=== PATIENT | female | born 1940 | race Caucasian/White ===

== ENCOUNTER 2020-09-15 13:55 | Inpatient (IN) | payer MEDICARE, BC ==
[~2020-09-15] VITALS: Ht 154.9 cm; Wt 99.1 kg
[~2020-09-15 13:55] MED LIST: 00186-0370-20 IH; ALDACTONE 25MG25 M1 PO; CALCIUM + D 6001 TA1 PO; CELEXA10 MG PO; COUMADIN 22.5 MG/TAB PO; COUMADIN 5MG5 MG/TAB PO; FOLIC ACID 11 MG/TA1 PO; FOSAMAX PLUS D1 TAB PO; HYZAAR 25 MG-101 TAB PO; LANOXIN 0.120.125 MG PO; LASIX 40MG TABL40 MG PO; LEXAPRO 10MG10 MG PO; OSCAL 500 TAB500 MG PO; OSCAL W/VIT D250 MG PO; PREDNISONE 5MG5 MG PO; PRILOSEC 20MG20 MG PO; PROAIR HFA0.09 MG/AC IH; TENORMIN 2525 MG/TAB PO
[2020-09-15] MEDS ORDERED: ELIQUIS 5MG PO (15:40)
[2020-09-15] MEDS ORDERED: LIPITOR 80MG80 MG PO (15:41)
[2020-09-15] MEDS ORDERED: CEPHALEXIN500 M1 PO (15:42)
[2020-09-15] MEDS ORDERED: CARDIZEM 30MG T30 MG PO (15:45)
[2020-09-15] MEDS ORDERED: HYDROCORTISONE30 G3 TP (15:47)
[2020-09-15] MEDS ORDERED: TOPROL XL 50MG50 MG PO (15:48)
[2020-09-15] MEDS ORDERED: PROTONIX20 MG PO (15:50)
[2020-09-15] MEDS ORDERED: LASIX 20MG TABL20 MG PO (16:08)
[2020-09-15] MEDS ORDERED: TYLENOL 500MG500 MG PO (16:10)
[2020-09-15] MEDS ORDERED: 00186-0370-20 IH (16:14)
[2020-09-15] MEDS ORDERED: ZYRTEC 10MG10 MG PO (16:15)
[2020-09-15] MEDS ORDERED: VITAMIN D31000 I1 PO (16:16)
[2020-09-15] MEDS ORDERED: SINGULAIR 110 MG/TAB PO (16:17)
[2020-09-15] MEDS ORDERED: EFFEXOR XR75 MG/CAP PO (16:19)
--- NOTE | 2020-09-15 21:00 | NUR ---
PT ADMITTED TO ROOM 338 PER TRANSPORT SERVICE FROM [facility]. PT TRANSFERRED MAX 3 TO BED PER STRETCHER. LT ARM FLACCID. LEFT LEG MOVES SLIGHTLY. NOTED VERY POOR CIRCULATION TO LLE- COLD TO TOUCH. MARBLED IN COLOR. TOES PURPLE. PT REPORTS THAT HAS BEEN LIKE THAT FOR A WEEK. UNABLE TO FEEL PEDAL PULSES. OBTAINED DOPPLER- STILL UNABLE TO HEAR ANY. NOTIFIED MONICA MOORE OF FINDINGS. SHE WILL COME TO ASSESS. PEDAL PULSES FOUND BY MONICA. MARKED WITH PEN. WILL CONTINUE TO MONITOR. PT DRINKING H20 WELL W/O CHOKING. ORIENTED TO ROOM AND VISITORS POLICY. HAD QUESTIONS- ANSWERED. CALL LIGHT IN REACH. BED ALARM SET. LT ARM UP ON PILLOW. SCD'S APPLIED TO BILAT LEGS.
[2020-09-15 21:39] VITALS: BP 116/76; PULSE 93; TEMP 97.5
--- NOTE | 2020-09-15 22:00 | NUR ---
PT HAS YEAST BILAT UNDER BREAST, PANNUS AND GROIN. WILL NOTIFY FOR TX PLAN IN AM.
[2020-09-15] MEDS ORDERED: PROLIA60 MG/ML SQ (22:43)
--- NOTE | 2020-09-16 00:04 | NUR ---
PT SLEEPING WITH CPAP ON. NO DISTRESS.
--- NOTE | 2020-09-16 03:18 | NUR ---
PT ARRIVED TO HOSPITAL AT 2100. THEREFORE SVN WAS NOT GIVEN. 2 HOURS PAST SCHEDULED TIME. PT IS ON ROOM AIR AND NO RESPIRATORY DISTRESS NOTED AT THIS TIME. PT IS ON HER CPAP RESTING COMFORTABLY.
[2020-09-16 05:33] VITALS: BP 127/64; PULSE 79; TEMP 98.6
--- NOTE | 2020-09-16 08:00 | NUR ---
Patient in bed resting. Assisted patient to set up for breakfast, eats independently. LUE flacid. Toes to BLE purple, pedal pulses present. Denies pain at this time. Denies further needs at this time.
--- NOTE | 2020-09-16 10:30 | NUR ---
Contacted Zina NEWTON for desenex orders, applies to groin and underneath breasts.
--- NOTE | 2020-09-16 11:20 | NUR ---
Patient to recliner with sit to stand.
--- NOTE | 2020-09-16 14:45 | NUR ---
SW met with the patient to complete intake, as the patient is new to [facility]. The patient lives alone in [place]. Her son, Ashwin (ph#[phone]), lives in [place]. She reports independence with ADLs and has a cane and a CPAP from a [facility] in [place]. She could not recall their name. The patient's PCP is Dr. Tenzin Simeon in [place] and she receives her medications from [facility]. The patient does not have a DPOA-HC in EMR, but she states that she does have one completed and that it designates her son, Obi. She states that the DPOA-HC is at home. She reports that her is and she has four children: Obi, Ashwin, Malathi, and Maxine (ph#[phone]). The patient states that she feels a little discouraged with therapy today. SW provided support. AILYN then contacted the patient's son, Ashwin, to inquire about the DPOA-HC. Ashwin reports that the patient does not have one completed and that it designates his brother, Obi. He reports that him or one of his siblings can bring up a copy. SW to continue to follow.
[2020-09-16 17:20] VITALS: BP 122/63; PULSE 84; TEMP 97.7
--- NOTE | 2020-09-16 19:06 | NUR ---
Patient doing well throughout the day, has been up to recliner through the day. Denies pain. Heels floated on pillows, SCDS to BLE. Denies furhter needs at this time. Reported off to website project manager.
--- NOTE | 2020-09-16 19:12 | NUR ---
RECEIVED CHANGE OF SHIFT REPORT FROM DAY SHIFT NURSE. PATIENT WITH NO REPORTED NEEDS OR CONCERNS AT TIME OF REPORT.
[2020-09-17 05:40] VITALS: BP 117/51; PULSE 61; TEMP 98.3
--- NOTE | 2020-09-17 07:19 | NUR ---
CHANGE OF SHIFT REPORT GIVEN TO DAY SHIFT NURSE, MAVIS STEWART.
--- NOTE | 2020-09-17 16:34 | NUR ---
Records requested from [facility]
[2020-09-17 17:54] VITALS: BP 116/53; PULSE 99; TEMP 97.7
--- NOTE | 2020-09-17 18:41 | NUR ---
RECEIVED CHANGE OF SHIFT REPORT FROM DAY SHIFT NURSE.
[2020-09-17 20:50] VITALS: BP 132/57
[2020-09-18 05:01] VITALS: BP 122/66; PULSE 105; TEMP 98.4
--- NOTE | 2020-09-18 06:51 | NUR ---
CHANGE OF SHIFT REPORT GIVEN TO DAY SHIFT NURSE, RILEY STEWART.
--- NOTE | 2020-09-18 08:30 | NUR ---
assisted onto bedpan per her request, had large semiformed/loose brown bowel movement and voided large amount, provided hygiene and am hygiene at this time, changed out of hospital gown and into personal gown, brushed her teeth independently, denies needs, cardiopulmonary in to provide breathing treatment
--- NOTE | 2020-09-18 09:05 | NUR ---
resting in bed watching TV, full assessment completed at this time, see interventions for further info, right upper arm with brusing and is marked, brusing appears to be receeding from marked line, cocyx slightly reddened, toes are purplish red, was able to palpate weak pedal pulses, she is pleasant and assists with turning and with am care
--- NOTE | 2020-09-18 11:25 | NUR ---
son here to visit, repositioned to left side
--- NOTE | 2020-09-18 12:01 | NUR ---
sitting up in bed eating lunch, denies needs
--- NOTE | 2020-09-18 12:15 | NUR ---
report given to PAT Green
[2020-09-18 16:43] VITALS: BP 137/57; PULSE 80; TEMP 97.7
--- NOTE | 2020-09-18 17:53 | NUR ---
Patient resting in bed at this time. Patient remians alert and oriented. Patient has been repositioned frequently to prevent skin breakdown and has denied pain or further needs, call light within reach.
--- NOTE | 2020-09-18 19:02 | NUR ---
RECEIVED CHANGE OF SHIFT REPORT FROM DAY SHIFT NURSE.
--- NOTE | 2020-09-18 19:30 | NUR ---
OBSERVED SLIGHT L HAND DRESS OPERATOR ON COMMAND COMPARED TO R HAND DRESS OPERATOR.
--- NOTE | 2020-09-18 20:00 | NUR ---
DENIES CHEST PAIN/SOA AT THIS TIME. PATIENT STATES SHE HAS BEEN ABLE TO LIFT HER LUE SPONTANEOUSLY AT ABOUT A 45 DEGREE ANGLE FOR SHORT PERIOD OF TIME, WITH WEAKNESS. WEAKNESS CONTINUES TO LLE. SWALLOWS WHOLE PILLS AND THIN LIQUIDS WITH NO PROBLEMS. BED ALARM ON WHEN IN BED.
[2020-09-18 21:08] VITALS: BP 117/73
--- NOTE | 2020-09-19 02:37 | NUR ---
PATIENT REQUEST TO HAVE CPAP OFF AND TURNED TO LEFT SIDE. BED ALARM ON AFTER REPOSITIONED.
[2020-09-19 05:42] VITALS: BP 119/48; PULSE 80; TEMP 98.4
[2020-09-19 06:38] LABS: INR 1.5 (0.8-3.0); PROTHROMBIN TIME 16.4 SECONDS (9.7-12.8)
[2020-09-19 06:39] LABS: HEMATOCRIT 41.7 % (37.0-47.0); HEMOGLOBIN 13.6 g/dl (12.5-16.0); MEAN CELL VOLUME 95 fl (80.0-100.0); MEAN CORPUSCULAR HEMOGLOBIN 31 pg (27.0-31.0); MEAN CORPUSCULAR HGB CONC 33 g/dl (33.0-37.0); MEAN PLATELET VOLUME 12.1 fl (7.4-10.4); PLATELET COUNT 238 K/mm3 (130-400); RED BLOOD COUNT 4.38 M/mm3 (4.10-5.30); REDCELL DISTRIBUTION WIDTH-CV 14.9 % (11.5-14.5)
[2020-09-19 06:47] LABS: ALBUMIN 3.3 gm/dL (3.5-5.0); BILIRUBIN,TOTAL 0.6 mg/dL (0.0-1.0); CALCIUM 8.6 mg/dL (8.4-10.2); CREATININE, serum 0.94 (0.52-1.25); POTASSIUM 4.9 mmol/L (3.4-5.0)
--- NOTE | 2020-09-19 06:57 | NUR ---
CHANGE OF SHIFT REPORT GIVEN TO DAY SHIFT NURSE, ELIZABETH STEWART.
[2020-09-19 07:40] VITALS: BP 118/53; PULSE 100
[2020-09-19 07:51] LABS: BAND 2 % (0-10); EOSINOPHIL 2 % (0-4); LYMPHOCYTE 14 % (20.0-51.0); METAMYELOCYTE 1 % (0-0); NEUTROPHILS 77 % (42.0-75.2); PLATELET ESTIMATE NORMAL (NORMAL)
--- NOTE | 2020-09-19 08:00 | NUR ---
Patient sitting up in recliner, alert and oriented x 3. Assessment complete. Dneies pain at this time. Toes to bilateral lower extremities remain purple, pedal pulse +1. Patient denies further needs at this time.
--- NOTE | 2020-09-19 15:14 | NUR ---
Admission QIM scores were reviewed by the team. Code of 4 chosen for oral hygiene was determined by team discussion to be the most usual performance before interventions for this patient during the assessment period. Code of 1 chosen for toileting transfers was determined by team discussion to be the most usual performance for this patient during the assessment period. Code of 2 chosen for rolling left to right was determined by team discussion to be the most usual performance for this patient during the assessment period. Code of 2 chosen for lying to sitting on side of bed was determined by team discussion to be the most usual performance for this patient during the assessment period.--Taniya Don,
--- NOTE | 2020-09-19 16:09 | NUR ---
Technical Programs Manager was contacted by patient's son, Ashwin who inquired about a family meeting and patient's progress. SW advised that the team will meet on Saturday and SW would follow up with an update. AILYN also advised that while patient is here a family meeting would be scheduled. SW attempted twice to follow up with patient but was unsucessful. SW will attempt to follow up at a later time.
--- NOTE | 2020-09-19 16:16 | NUR ---
Notified by FARMWORKER CRANBERRY that patient hit arm on door jamb when getting out of restroom using sit to stand. Area cleaned with iodine, steri strips and telfa with tegaderm applied to right forarm. No further needs at this time.
[2020-09-19 16:31] VITALS: BP 105/55; PULSE 88; TEMP 97.9
--- NOTE | 2020-09-19 19:00 | NUR ---
RECEIVED CHANGE OF SHIFT REPORT FROM DAY SHIFT NURSE.
--- NOTE | 2020-09-19 19:09 | NUR ---
Patient doing well throughout the day, has been up to recliner throughout the day. Denies pain throughout the day. Denies further needs at this time. Reported off to night manager.
[2020-09-20 05:18] VITALS: BP 121/66; PULSE 65; TEMP 97.6
--- NOTE | 2020-09-20 07:20 | NUR ---
CHANGE OF SHIFT REPORT GIVEN TO DAY SHIFT NURSE, JAYLEN STEWART.
--- NOTE | 2020-09-20 07:50 | NUR ---
AM SHIFT ASSESSMENT COMPLETE. MORNING MEDICATIONS ADMINISTERED. PATIENT WAITING FOR THERAPY THIS MORNING. CALL LIGHT IN REACH. NO OTHER NEEDS AT THIS TIME.
--- NOTE | 2020-09-20 11:06 | NUR ---
Initial visit; Patient thanked Container Washer Machine for looking in on her and offering prayer and God's blessings.
--- NOTE | 2020-09-20 12:28 | NUR ---
PATIENT REPORTING BILATERAL KNEE PAIN. PATIENT STATES THAT SHE USES BENGAY AT HOME. PATIENT GIVEN PRN TYLENOL FOR PAIN AT THIS TIME.
--- NOTE | 2020-09-20 17:33 | NUR ---
PATIENT SITTING UP IN BEDSIDE CHAIR. PATIENT FINISHED WITH DINNER. PATIENT STATES THAT SHE WOULD LIKE TO SIT UP FOR A WHILE. TRAY MOVED TO THE SIDE FOR PATIENT; WATER, TISSUES AND CALL LIGHT IN REACH. CHAIR ALARM IN PLACE. NO ADDITIONAL NEEDS AT THIS TIME.
[2020-09-20 18:36] VITALS: BP 106/49; PULSE 94; TEMP 97.7
--- NOTE | 2020-09-21 04:51 | NUR ---
NO NEW ISSUES NOTED OR REPORTED BY PATIENT THROUGHOUT THE NIGHT.
[2020-09-21 05:01] VITALS: BP 127/60; PULSE 88; TEMP 97.9
--- NOTE | 2020-09-21 16:03 | NUR ---
Cooker Loader met with patient to review and provide copy of team conference notes. Patient states things are going well, however she does feel that it is taking a while to get a response when she hits the call light. SW advised patient that the team will re-evaluate her next week. AILYN then contacted patient's son, Ashwin to give an update. AILYN advised Ashwin that a family meeting would be scheduled at a later time. AILYN will continue to follow.
[2020-09-21 16:52] VITALS: BP 136/69; PULSE 96; TEMP 97.3
--- NOTE | 2020-09-21 18:00 | NUR ---
Patient has been doing well today. She has some aching to her knees and had a headache this am. Tylenol given, ointment applied to knees as ordered. No complaints of nausea. Changed the dressing to the skin tear to her right arm. Steri-strips intact, scant pink drinage from tear. Placed a 4x4 foam dressing to site. No other changes at this time. Call light within reach. Bed alarm on.
--- NOTE | 2020-09-21 19:00 | NUR ---
RECEIVED CHANGE OF SHIFT REPORT FROM DAY SHIFT NURSE.
--- NOTE | 2020-09-21 20:00 | NUR ---
DENIES CHEST PAIN/SOA AT THIS TIME. CONTINUES WITH WEAKNESS TO LUE AND LLE WITH DECREASED SENSATION TO LUE/LLE. BED ALARM ON WHEN IN BED. PURPLISH DISCOLORATION TO TOES OF LEFT FOOT CONTINUES.
[2020-09-22 05:07] VITALS: BP 140/70; PULSE 73; TEMP 97.9
--- NOTE | 2020-09-22 07:33 | NUR ---
CHANGE OF SHIFT REPORT GIVEN TO DAY SHIFT NURSEJENNY RN.
[2020-09-22 15:54] VITALS: BP 123/60; PULSE 99; TEMP 98
--- NOTE | 2020-09-22 17:45 | NUR ---
Patient resting in bedside recliner eating dinner at this time. Patient remains alert and oriented, answers questions appropriately. Patient has c/o some bilateral knee pain today, applied topical volteran gel for patient comfort. Patient denies needs at this time, call light within reach.
--- NOTE | 2020-09-22 21:00 | NUR ---
PT TRANSFERRED TO BED FROM CHAIR PER SIT TO STAND LIFT. HAD SMALL SOFT FORMED BM. NEEDED HYGIENE CARE ASSIST. LT ARM FLACCID. ELEVATED ON PILLOW. LLE COOLER THAN RT BUT PINK. LLE PULSES PER DOPPLER AREA MARKED WITH PEN. RLE PULSES PALPABLE. GOOD SENSATION NOTED. PUREWICK STARTED FOR HS FOR INCONTINENT URINE. SEE SKIN ASSESSEMENT FOR COCCYX. CALL LIGHT IN REACH. BED ALARM SET.
--- NOTE | 2020-09-23 05:26 | NUR ---
PT WORE CPAP THROUGH THE NIGHT. PUREWICK USED PRN
[2020-09-23 05:41] VITALS: BP 110/53; PULSE 96; TEMP 97.5
--- NOTE | 2020-09-23 07:50 | NUR ---
PATIENT MORNING MEDICATIONS ADMINISTERED. PATIENT REPORTING BILATERAL KNEE PAIN THIS MORNING. PATIENT STATES THAT SHE HAS NO PAIN AT REST, BUT HAS PAIN IN HER KNEES WITH ACTIVITY. PATIENT GIVEN PRN PO TYLENOL WITH MORNING MEDICATIONS. VOLTAREN GEL APPLIED TO BILATERAL KNEES. PATIENT ASSISTED TO BATHROOM WITH [id number] LIFT. PATIENT HAD LARGE SOFT FORMED BOWEL MOVEMENT THIS MORNING. EXCORIATION UNDER BREAST AND PANNUS IMPROVING. DESENEX TO BE APPLIED AFTER HER SHOWER THIS MORNING, PER PATIENT REQUEST. SEE MORNING SHIFT ASSESSMENT. PATIENT ASSISTED TO THE CHAIR AFTER USING THE RESTROOM THIS MORNING. CHAIR ALARM IN PLACE. CALL LIGHT WITHIN REACH. PATIENT DENIES ADDITIONAL NEEDS AT THIS TIME.
--- NOTE | 2020-09-23 10:39 | NUR ---
OCCUPATIONAL THERAPY CALLED THIS NURSE. PATIENT CAUGHT HER LEFT UPPER ARM ON THE DRESSING HOOK WHILE GETTING DRESSED AFTER HER SHOWER. MEPLEX DRESSING PLACED OVER SKIN TEAR.
--- NOTE | 2020-09-23 13:26 | NUR ---
Follow-up visit; Patient offered spiritual care; listening, visiting and offering Prayer and God's blessings. Patient requested a return visit.
--- NOTE | 2020-09-23 16:30 | NUR ---
Syrup Filterer checked in with patient before the weekend. Patient states she worked on standing today and has been happy with the aide she has today as well. Patient has no questions at this time. SW will continue to follow.
[2020-09-23 17:10] VITALS: BP 136/65; PULSE 103; TEMP 98.2
--- NOTE | 2020-09-23 17:55 | NUR ---
PATIENT SITTING UP IN THE BEDSIDE CHAIR. PATIENT FINISHED WITH HER DINNER TRAY. ICE WATER REFRESHED. DAUGHTER PRESENT IN THE ROOM. CHAIR ALARM ON. CALL LIGHT WITHIN REACH. PATIENT DENIES ADDITIONAL NEEDS AT THIS TIME.
--- NOTE | 2020-09-23 21:00 | NUR ---
PT SITTING UP IN RECLINER. VISITING WITH FRIEND. CHEERFUL. LT SIDED ARM FLACCID. LLE VERY WEAK. LLE PULSES WITH DOPPLER. MARKED WITH PEN. LLE EDEMA NOTED. WARM TO TOUCH. MEPILEX TO SKIN TEARS TO LT F/A AND RT ELBOW AREA CDI. CALL LIGHT IN REACH. BED ALARM SET.
[2020-09-24 05:04] VITALS: BP 139/63; PULSE 108; TEMP 98
--- NOTE | 2020-09-24 09:17 | NUR ---
PT UP TO RECLINER FOR BREAKFAST. PT IS A/O X3, VSS ASSESSMENTS COMPLETE. PT DEINIES PAIN OR NEEDS.
[2020-09-24 16:37] VITALS: BP 110/50; PULSE 104; TEMP 97.8
--- NOTE | 2020-09-24 18:29 | NUR ---
pt had uneventful shift. Visited with daughter this pm.
--- NOTE | 2020-09-24 21:00 | NUR ---
PT RESTING IN BED. LT SIDE FLACCID. ABLE TO SHRUG LT SHOULDER. PT IN GOOD SPIRITS. TYLENOL GIVEN FOR BILAT KNEE PAIN. SEE JUN. CALL LIGHT IN REACH. BED ALARM SET.
--- NOTE | 2020-09-25 02:19 | NUR ---
PT C/O CANT USE CPAP TONIGHT. PT SNEEZING AND HAS CLEAR SINUS DRAINAGE. ZYRTEC GIVEN AT THIS TIME. REPOSITIONEND AGIAN FOR COMFORT. CALL LIGHT IN REACH. BED ALARM SET.
[2020-09-25 05:02] VITALS: BP 104/53; PULSE 57; TEMP 97.7
--- NOTE | 2020-09-25 05:57 | NUR ---
PT STILL HAVING SINUS SYMPTOMS THIS AM. PT RELATED ZYRTEC GIVEN EARLIER HAS HELPED SOME.
--- NOTE | 2020-09-25 08:38 | NUR ---
PT RESTING IN BED. PT REQUESTING TO NOT BE DISTURBED THIS AM.
--- NOTE | 2020-09-25 09:21 | NUR ---
PT REPOSITONED FOR COMFORT. BREAKFAST TRAY PROVIDED. AM MEDS GIVEN PER ORDERS. AM CARES PROVIDED PER REQUESTS. PT DENIES FURTHER NEEDS.
--- NOTE | 2020-09-25 14:48 | NUR ---
PT RESTING IN BED EYES CLOSED.
[2020-09-25 18:20] VITALS: BP 110/51; PULSE 103; TEMP 97.9
[2020-09-26 04:43] VITALS: BP 142/75; PULSE 98; TEMP 97.9
[2020-09-26 16:18] VITALS: BP 110/48; PULSE 100; TEMP 98.3
--- NOTE | 2020-09-26 18:36 | NUR ---
Patient doing well thorough the day. Complains of knee pain, voltaren gel applied per orders. Patient up to restoom with sit to stand, had a small BM. denies further needs at this time. Will report off to sleeping bag filler.
--- NOTE | 2020-09-26 18:39 | NUR ---
RECEIVED CHANGE OF SHIFT REPORT FROM DAY SHIFT NURSE.
--- NOTE | 2020-09-26 20:00 | NUR ---
DENIES CHEST PAIN/SOA. DENIES NUMBNESS/TINGLING TO EXTREMITIES. CONTINUES TO LUE WEAKNESS WORSE THAN LLE WEAKNESS, REQUIRES USE OF RIGHT HAND TO ACTIVELY TAKE LUE TO REPOSITION LUE ON PILLOW. REPORTS WOULD LIKE TYLENOL TO BE TAKEN WITH HS MEDS. BED ALARM ON.
--- NOTE | 2020-09-26 20:00 | NUR ---
WEAKNESS TO LUE AND LLE CONTINUE WITH LLE SLIGHTLY STRONGER TO LUE. DENIES CHEST PAIN/SOA/NUMBNESS&TINGLING TO EXTREMITIES. REPORTS HAS SOME INTERMITTENT B KNEE PAIN.
--- NOTE | 2020-09-27 02:30 | NUR ---
PATIENT SLEEPING, DOES NOT WAKE WHEN ROOM ENTERED BY STAFF, PATIENT WEARING CPAP STILL. BREATHING NONLABORED AND EVEN. BED ALARM ON.
--- NOTE | 2020-09-27 05:02 | NUR ---
PATIENT SLEEPING, DOES NOT WAKE WHEN STAFF ENTERS ROOM TO UPDATE COMMUNICATION BOARD. BREATHING NONLABORED AND EVEN. BED ALARM ON.
[2020-09-27 05:37] VITALS: BP 123/75; PULSE 98; TEMP 97.7
--- NOTE | 2020-09-27 07:15 | NUR ---
CHANGE OF SHIFT REPORT GIVEN TO DAY SHIFT NURSE, JAYLEN STEWART. BED ALARM ON .
--- NOTE | 2020-09-27 09:25 | NUR ---
PATIENT RESTING IN BED THIS MORNING AFTER EATING HER BREAKFAST TRAY. PATIENT REPORTS THAT HER PAIN IS OKAY THIS MORNING AFTER TAKING TYLENOL EARLIER. CHIEF PAIN COMPLAINT IS HER KNEES WITH ACTIVITY. PATIENT MORNING MEDICATIONS ADMINISTERED. PATIENT SHIFT ASSESSMENT COMPLETED. PATIENT WOULD LIKE TO WAIT TO APPLY VOLTAREN GEL OR DESENEX POWDER UNTIL AFTER OCCUPATIONAL THERAPY, SHE BELIEVES SHE IS TAKING A SHOWER TODAY. LUE ELEVATED ON PILLOWS, BLE ELEVATED ON PILLOWS. CALL LIGHT WITHIN REACH. BED ALARMS ON. ICE WATER REFRESHED. NO ADDITIONAL NEEDS AT THIS TIME.
--- NOTE | 2020-09-27 12:13 | NUR ---
PATIENT CALLED OUT STATING THAT HER KNEES AND LEGS ARE CRAMPING. PATIENT GIVEN PRN TYLENOL. VOLTAREN GEL APPLIED TO BILATERAL KNEES. BLE ELEVATED ON PILLOWS. CALL LIGHT WITHIN REACH. NO ADDITIONAL NEEDS AT THIS TIME.
--- NOTE | 2020-09-27 13:10 | NUR ---
ULTRASOUND CALLED AND NOTIFIED OF ULTRASOUND ORDERS. PATIENT IN THERAPIES UNTIL 1414. DITTO MACHINE OPERATOR TO SEE PATIENT AFTER THERAPY.
--- NOTE | 2020-09-27 15:05 | NUR ---
AMAN BRAUN CALLED AND NOTIFIED THAT THE ULTRASOUND CAME BACK NEGATIVE FOR DVT.
[2020-09-27 15:14] VITALS: BP 117/64; PULSE 94; TEMP 97.7
--- NOTE | 2020-09-27 17:53 | NUR ---
Reported off to Lilian REY
--- NOTE | 2020-09-27 18:01 | NUR ---
RECEIVED CHANGE OF SHIFT REPORT FROM DAY SHIFT NURSE.
--- NOTE | 2020-09-27 19:05 | NUR ---
PATIENT RESTING IN BED, DAUGHTER AT BEDSIDE. DENIES ANY NEEDS OR DISCOMFORT. BED ALARM ON.
--- NOTE | 2020-09-27 20:00 | NUR ---
LUE/LLE WEAKNESS CONTINUES WITH LUE WEAKER THAN LLE. DENIES NUMBNESS/TINGLING TO EXTREMITIES AT THIS TIME. BED ALARM ON WHEN IN BED. DENIES CHEST PAIN/SOA AT THIS TIME.
[2020-09-27 20:53] VITALS: BP 108/65
--- NOTE | 2020-09-28 00:40 | NUR ---
DOESNOT WAKE WHEN ROOM ENTERED BY STAFF. SLEEPING WITH BREATHING NONLABORED AND EVEN. CPAP ON. BED ALARM ON.
--- NOTE | 2020-09-28 03:54 | NUR ---
PATIENT SLEEPING, DOES NOT WAKE WHEN ROOM ENTERED BY STAFF. BREATHING NONLABORED AND EVEN. BED ALARM ON.
[2020-09-28 04:14] VITALS: BP 103/57; PULSE 88; TEMP 97
--- NOTE | 2020-09-28 07:01 | NUR ---
CHANGE OF SHIFT REPORT GIVEN TO DAY SHIFT NURSE, MAVIS STEWART.
[2020-09-28 16:19] VITALS: BP 127/67; PULSE 100; TEMP 97.4
--- NOTE | 2020-09-28 16:46 | NUR ---
Automatic Coin Machine Mechanic met with patient to review and provide copy of team conference notes. Patient to be re-evaluted next week. SW contacted patient's son, Ashwin to provide update.
--- NOTE | 2020-09-28 21:00 | NUR ---
PT RESTING IN BED. LEFT SIDE FLACCID. GOOD SENSATION. HAS SKIN TEARS OR WOUNDS WITH MEPILEX CHANGED AT THIS TIME. X3 LUE. X1 LUE. ALL HEALING WELL. WEAK PULSE TO LLE. MARKED WITH PEN. SWOLLEN AREA TO RT LATERAL ANKLE. MARKED W/PEN. GAVE TYLENOL FOR BILAT ANKLE PAIN. CALL LIGHT IN REACH. BED ALARM SET.
[2020-09-29 05:19] VITALS: BP 140/74; PULSE 91; TEMP 97.7
--- NOTE | 2020-09-29 13:32 | NUR ---
Gm contacted patient's daughter, Malathi (ph#[phone]) who had questions about current visitation policy. SW advised Malathi that patient can only have two designated visitors at this time and Malathi verbalized understanding. AILYN advised Malathi that once a family meeting is scheduled, she will still be welcome to participate by phone.
[2020-09-29 17:45] VITALS: BP 143/87; PULSE 90; TEMP 97.6
--- NOTE | 2020-09-29 21:30 | NUR ---
ASSISTED PT TO BR THEN TO BED PER ARJO LIFT. TYLENOL GIVEN FOR BILAT KNEE PAIN. LT SIDE FLACCID. LT ARM ELEVATED ON PILLOW. SKINTEARS TO BUE WITH CDI MEPILEX.
[2020-09-30 04:46] VITALS: BP 119/72; PULSE 90; TEMP 97.9
--- NOTE | 2020-09-30 10:56 | NUR ---
Follow-up visit; Patient experiencing some depression and is weepy. She thanked for listening and offering encouragement and prayer. will also take Pilar a New Testament to keep her company.
--- NOTE | 2020-09-30 16:07 | NUR ---
Oyster Unloader followed up with patient before the weekend. Patient has no questions or concerns at this time but remarks she has more progress to make before discharging.
[2020-09-30 17:37] VITALS: BP 110/67; PULSE 82; TEMP 97.3
[2020-09-30 17:39] VITALS: BP 110/67; PULSE 82; TEMP 97.3
--- NOTE | 2020-09-30 18:30 | NUR ---
Patient did well today. Denie nausea. She stated her knee is aching more. Have been putting the cream and giving tylenol as needed for pain. She did not want to try other pain medications. No other changes at this time. Call light within reach.
--- NOTE | 2020-10-01 03:59 | NUR ---
PATIENT HAD AN UNEVENTFULL NIGHT. TYLENOL GIVEN AND CREAM APPLIED TO JEFERSON KNEES FOR PAIN WITH GOOD EFFECT. PATIENT OUT TO COMMODE WITH TWO MAX ASSIST. PATIENT WEAR CPAP OVER NIGHT. PATIENT ALERT AND ORIENTED. VOIDED WITHOUT DIFFICULTIES. WILL CONTINUE TO MONITOR.
[2020-10-01 05:53] VITALS: BP 131/80; PULSE 88; TEMP 97.6
--- NOTE | 2020-10-01 10:06 | NUR ---
Assisted patient with dressing and cleaning up this morning. Was set up for eating. Denies questions at this time.
[2020-10-01 18:00] VITALS: BP 144/80; PULSE 105; TEMP 98.1
--- NOTE | 2020-10-01 19:50 | NUR ---
Patient chose to not attend Group Therapy today. She had a visitor this afternoon. She was a sit to stand lift with all her transfers. The area under her breasts continue to bother her and desitin powder was applied. Patient in a pleasent mood this shift. Reported off to night nurse.
--- NOTE | 2020-10-02 05:30 | NUR ---
PATIENT ALERT AND ORIENTED X4. NO EVENT OVERNIGHT. MEDICATED WITH TYLENOL FOR KNEE PAIN WITH GOOD EFFECT. TURN AND REPOSITION Q 2 HOURS. VITAL SIGNS STABLE. CALL LIGHT WITHN REACH. BED LOW POSITION AND LOCK. USE CALL LIGHT APPROPRIATLY. WILL CONTINUE TO MONITOR.
[2020-10-02 07:52] VITALS: BP 104/63; PULSE 102; TEMP 97.5
[2020-10-02 15:43] VITALS: BP 118/69; PULSE 95; TEMP 97.5
--- NOTE | 2020-10-02 19:30 | NUR ---
RECEIVED CHANGE OF SHIFT REPORT FROM DAY SHIFT NURSE.
--- NOTE | 2020-10-02 20:21 | NUR ---
Patient ate an early breakfast then took an hour and a half nap this morning. This nurse then assisted her with getting up and changed. She did her own grooming. Patient was reporting some leg cramping when using her SCD's. These were removed from her room per patient request. She has compression socks that have been helpful. She tolerated diet well, but did report that the meals were too big for her, requesting 1/2 servings. Her son stopped by this afternoon to visit.
[2020-10-03 05:25] VITALS: BP 111/63; PULSE 92; TEMP 98
[2020-10-03 07:00] LABS: BASO % 0.4 % (0.0-2.0); EOS # 1.6 (0.0-0.7); EOS % 15.8 % (0-4.0); GRAN # 6.9 (1.4-6.5); GRAN % 67.1 % (42.2-75.2); HEMATOCRIT 39.2 % (37.0-47.0); HEMOGLOBIN 12.9 g/dl (12.5-16.0); LYMPH # 0.9 (1.2-3.4); LYMPH % 8.8 % (20.0-51.0); MEAN CELL VOLUME 93 fl (80.0-100.0); MEAN CORPUSCULAR HEMOGLOBIN 31 pg (27.0-31.0); MEAN CORPUSCULAR HGB CONC 33 g/dl (33.0-37.0); MEAN PLATELET VOLUME 11.3 fl (7.4-10.4); MONO # 0.8 (0.1-0.6); MONO % 7.5 % (1.7-9.3); PLATELET COUNT 174 K/mm3 (130-400); REDCELL DISTRIBUTION WIDTH-CV 15.4 % (11.5-14.5)
--- NOTE | 2020-10-03 07:03 | NUR ---
CHANGE OF SHIFT REPORT GIVEN TO DAY SHIFT NURSE, MCKENZIE STEWART.
[2020-10-03 07:18] LABS: CALCIUM 8.8 mg/dL (8.4-10.2); CREATININE, serum 1.06 (0.52-1.25); POTASSIUM 4.2 mmol/L (3.4-5.0)
--- NOTE | 2020-10-03 16:36 | NUR ---
Geometry Professor attempted to meet with the patient. The patient was on the phone. Will attempt at a later time.
[2020-10-03 18:08] VITALS: BP 125/59; PULSE 102; TEMP 97.6
--- NOTE | 2020-10-03 19:09 | NUR ---
RECEIVED CHANGE OF SHIFT REPORT FROM DAY SHIFT NURSE.
--- NOTE | 2020-10-03 20:00 | NUR ---
CONTINUES WITH LUE WEAKNESS WITH NO FINE MOTOR MOVMENT BUT HAS PARTIAL GROSS MOTOR MOVEMENT. DENIES CHEST PAIN/SOA AT THIS TIME. DENIES NUMBNESS/TINGLING TO EXTREMITIES AT THIS TIME. BED ALARM ON WHEN IN BED. TOLERATES [id number] LIFT WITH TRANSFERS OUT OF BED TO BS. REQUESTS TYLENOL WITH MEDS TONIGHT.
--- NOTE | 2020-10-04 00:16 | NUR ---
PATIENT SLEEPING, DOESNOT WAKE WHEN ROOM ENTERED BY STAFF. BREATHING NONLABORED AND EVEN. BED ALARM ON.
--- NOTE | 2020-10-04 04:26 | NUR ---
PATIENT DOES NOT WAKE FROM SLEEP WHEN STAFF ENTERS ROOM. BREATHING IS NONLABORED AND EVEN. CPAP IN PLACE/WORKING. BED ALARM ON.
[2020-10-04 05:00] VITALS: BP 121/68; PULSE 53; TEMP 97.2
[2020-10-04 05:06] VITALS: BP 134/71; PULSE 87; TEMP 97.8
--- NOTE | 2020-10-04 07:11 | NUR ---
CHANGE OF SHIFT REPORT GIVEN TO DAY SHIFT NURSE, NAYELY STEWART.
[2020-10-04 07:42] LABS: CALCIUM 8.7 mg/dL (8.4-10.2); CREATININE, serum 1.19 (0.52-1.25); POTASSIUM 3.7 mmol/L (3.4-5.0)
--- NOTE | 2020-10-04 11:26 | NUR ---
Follow-up visit; Patient thanked Video Arcade Manager for looking in on her, visiting, doing morning prayer every morning and offering a blessing for her this morning.
--- NOTE | 2020-10-04 13:34 | NUR ---
Patient has attended all therapies this shift. She continues on NO FREE WATER Restriction. Dietary was called and gatorade was sent up for patient to drink. She is currently resting in bed, call light in reach and bed alarm set. Denies questions at this time.
--- NOTE | 2020-10-04 15:59 | NUR ---
Discussed her hyponatremia and reason for no free water restriction. Patient voiced understanding.
[2020-10-04 17:22] LABS: CHOLESTEROL RISK RATIO 4.6
[2020-10-04 18:03] VITALS: BP 125/74; PULSE 96; TEMP 98.1
--- NOTE | 2020-10-04 18:14 | NUR ---
Patient resting in bed, call light in reach and bed alarm set.
--- NOTE | 2020-10-04 18:20 | NUR ---
Patient does not have a stage II to her coccyx. It is a shearing linear gluteal cleft slit. Applied ointment to area. Healing. Will continue to monitor.
--- NOTE | 2020-10-04 18:48 | NUR ---
Patient has a Free Water restriction due to low sodium. She did not drink any water, but see I&O for amount of other fluids consumed. Reported off to night nurse.
--- NOTE | 2020-10-04 19:00 | NUR ---
RECEIVED CHANGE OF SHIFT REPORT FROM DAY SHIFT NURSE. CHAIR ALARM ON WHILE PATIENT UP IN CHAIR.
--- NOTE | 2020-10-04 20:00 | NUR ---
DENIES CHEST PAIN/SOA AT THIS TIME. DENIES NUMBNESS/TINGLING TO EXTREMITIES. CONTINUES WITH LUE WEAKNESS WITH NO OBSERVED FINE MOTOR MOVEMENT TO L HAND FINGERS, OBSERVED SOME GROSS MOTOR MOVEMENT TO LUE WHEN LAYING IN BED. BED ALARM ON WHEN IN BED. CONTINUES TO REQUIRE [id number] LIFT WITH OUT OF BED TRANSFERS.
--- NOTE | 2020-10-05 00:30 | NUR ---
PATIENT REFUSED TO WEAR CPAP AT THIS TIME ONCE REPOSITIONED ONTO LEFT SIDE.
--- NOTE | 2020-10-05 01:50 | NUR ---
PATIENT SLEEPING DOES NOT WAKE WHEN STAFF ENTER ROOM. BREATHING NONLABORED AND EVEN. BED ALARM ON.
[2020-10-05 04:00] VITALS: BP 11/69; PULSE 95; TEMP 98.1
--- NOTE | 2020-10-05 06:30 | NUR ---
Report received from PAT Ortiz. PT in bed resting after going to bathroom with Diana and having BM. Denies needs, will continue to monitor.
--- NOTE | 2020-10-05 07:26 | NUR ---
CHANGE OF SHIFT REPORT GIVEN TO DAY SHIFT NURSE, MARCIAL STEWART.
--- NOTE | 2020-10-05 09:18 | NUR ---
Pt doing well, able to move LLE on bed but unable to lift. LUE pt able to lift some but no envelope stamping machine operator, strong pulses and warm extremities. PT HR irregular, pt states this is her normal. Alert and oriented. Denies pain. Resting in bed after therapy. Will continue to monitor.
[2020-10-05 15:46] VITALS: BP 121/77; PULSE 104; TEMP 97.7
--- NOTE | 2020-10-05 16:21 | NUR ---
Corrugator met with the patient and her son Ashwin to present the Team Conference Note. The team has set a tentative discharge date of Saturday, 10/11 to SNF. SW discussed Medicare.gov's list of SNFs. The patient chose [facility] and [facility]. Referrals sent. Awaiting screens.
--- NOTE | 2020-10-05 19:01 | NUR ---
Pt has done well over shift, son visiting this afternoon. Pt requesting to use lift this evening, encouraging using own legs to stand but took some coaxing to get her to pivot transfer with 2 people. Once up pt does well but does need a lot of encouragment. Report given to PAT Morocho who will resume care.
--- NOTE | 2020-10-06 04:03 | NUR ---
PATIENT SLEEPING WELL NO DISTRESS NOTED. BREATHING UNLABORED. BED IN LOW POSITON, LOCKED AND BED ALARM ON. PATIENT OUT TO COMMODE WITH TWO MA ASSIST. BM YESTERDAY. CONTINUE ON NO FREE WATER RESTRICTION. WILL CONTINUE TO MONITOR.
[2020-10-06 05:48] VITALS: BP 119/61; PULSE 94; TEMP 97.4
--- NOTE | 2020-10-06 08:00 | NUR ---
PATIENT IS A&O AND SITTING UP IN BED WITH BREAKFAST TRAY. AM MEDS GIVEN. HEAD TO TOE ASSESSMENT COMPLETE. THERAPY TO COME WORK WITH PATIENT IN 15 MINUTES, SEE THERAPY NOTES.
--- NOTE | 2020-10-06 14:25 | NUR ---
Raking Machine Operator contacted the patient's son, Ashwin #[phone] to discuss setting up a family meeting. He was agreeable to a family meeting on Saturday, 10/07 at 1300. The patient's other children Obi, Malathi, and Agustina will be on speaker phone as well. Obi # Malathi Serrano # Agustina #
--- NOTE | 2020-10-06 14:59 | NUR ---
The patient's son, Ashwin was interested in sending more referrals. Security System Administrator faxed referrals to [facility] and to [facility] as well. AILYN contacted Leana from [facility] and the team there inquired about the full body PET scan with biopsy and the outpatient work up for cancer. SW to staff with the team regarding the above. AILYN contacted [facility]. Melissa reports they can likely take the patient (but no acceptance as of yet) if it is for LTC and if the patient plans to return home they cannot. Melissa reports the therapy they provide is not intensive enough. They also require a papework to be completed prior to admission. AILYN contacted Yovana with [facility] and they are still reviewing the referral. Feli from [facility] reports if they accept the patient she would have to establish a local physician and an application packet will have to be completed. SW to collaborate the above information with Taniya, [facility] Director.
[2020-10-06 17:14] VITALS: BP 95/77; PULSE 87; TEMP 98.6
--- NOTE | 2020-10-06 18:40 | NUR ---
PATIENT CALLED OUT REPORTING SHE COUGHED UP SOME BLOOD. PATIENT HAS HAD A KNOWN COUGH FOR DAYS. NOTED BLOODY SPUTUM IN TISSUES. UPON ASSESSMENT, PETECHIA NOTED TO ROOF OF MOUTH AND A SMALL AMOUNT OF BLOOD POOLED BUT HER UVULA. NO OTHER SYMPTOMS. NURSING WENT WALKED RIGHT DOWN TO HOSPITALIST OFFICE AND NOTIFIED APARNA Vidal, SEE ORDERS. PATIENT'S DAUGHTER AT BEDSIDE. REPORTED OFF TO PAT AGUDELO.
[2020-10-06 18:58] LABS: BASO # 0.1 (0.0-0.2); BASO % 0.4 % (0.0-2.0); EOS # 0.8 (0.0-0.7); EOS % 6.3 % (0-4.0); GRAN # 10.6 (1.4-6.5); GRAN % 80.6 % (42.2-75.2); HEMATOCRIT 39.2 % (37.0-47.0); HEMOGLOBIN 13.1 g/dl (12.5-16.0); LYMPH # 0.8 (1.2-3.4); LYMPH % 5.9 % (20.0-51.0); MEAN CELL VOLUME 91 fl (80.0-100.0); MEAN CORPUSCULAR HEMOGLOBIN 31 pg (27.0-31.0); MEAN CORPUSCULAR HGB CONC 33 g/dl (33.0-37.0); MEAN PLATELET VOLUME 11.6 fl (7.4-10.4); MONO # 0.8 (0.1-0.6); MONO % 6.2 % (1.7-9.3); PLATELET COUNT 205 K/mm3 (130-400); REDCELL DISTRIBUTION WIDTH-CV 15.7 % (11.5-14.5)
[2020-10-06 19:13] LABS: CALCIUM 8.9 mg/dL (8.4-10.2); CREATININE, serum 2.54 (0.52-1.25)
--- NOTE | 2020-10-06 19:20 | NUR ---
NOTIFIED APARNA NEWTON OF ALITTLE INCREASE IN HEMOPTYSIS. SHE WILL COME TO SEE PT.
--- NOTE | 2020-10-06 19:30 | NUR ---
PT TO CT PER BED WITH RN. #22G STARTED IN CT TO RT UPPER F/A PER HS. LAB HERE EARLIER PER ORDERS. PT CHELLY CT WELL. BACK TO ROOM. CALL LIGHT IN REACH. BED ALARM SET.
--- NOTE | 2020-10-06 20:30 | NUR ---
APARNA DAVIS PA HERE TO VISIT WITH PT ABOUT LAB AND CT FINDINGS AND PLAN. SEE NEW ORDERS. PT AGREEGABLE WITH PLAN. HEMOPTYSIS HAS SUBSIDED ALITTLE.
--- NOTE | 2020-10-06 21:40 | NUR ---
SEE MAR FOR TESSALON PEARLES GIVEN FOR COUGH PT CONTINUES MOD AMT HEMOPTYSIS. PROVIDED ICE CHIP FOR PT.
--- NOTE | 2020-10-06 23:00 | NUR ---
PT CONTINUES HAVING MOD AMT HEMOPTYSIS. NOTIFIED APARNA NEWTON. WILL COME TO SEE HER.
--- NOTE | 2020-10-06 23:13 | NUR ---
NEW ORDER FOR H&H POST APARNA NEWTON VISIT. NOTIFIED LAB.
[2020-10-06 23:27] LABS: HEMATOCRIT 37.9 % (37.0-47.0); HEMOGLOBIN 12.7 g/dl (12.5-16.0)
--- NOTE | 2020-10-06 23:38 | NUR ---
NOTIFIED APARNA NEWTON OF LAB RESULTS.
[2020-10-07] VITALS (189 sets, daily range): BP systolic 101–124; BP diastolic 57–108; PULSE 87–154; TEMP 97.4–98.2; O2SAT 84–100
[2020-10-07 02:38] LABS: HEMATOCRIT 41.7 % (37.0-47.0); HEMOGLOBIN 14.1 g/dl (12.5-16.0)
--- NOTE | 2020-10-07 02:55 | NUR ---
PT CONTINUES WITH MOD AMT HEMOPTYSIS. PT FATIGUED. VSS REMAIN STABLE. GENERALIZED DISCOMFORT BUT DECLINED TYLENOL. REPOSITIONED SEVERAL TIMES. PACKING PT'S ITEMS UP INCLUDING HER CELL PHONE AND CHARGE CORD.
--- NOTE | 2020-10-07 04:57 | NUR ---
Transfusion started. Tolerating well. Denies needs. Call light in reach.
--- NOTE | 2020-10-07 04:59 | NUR ---
Patient transferred to ICU at 0355. Assessment complete and charted. All questions answered. Patient has several bloody tissues present at bedside. Provided with oral suctioning. Denies needs. Call light in reach.
--- NOTE | 2020-10-07 07:25 | NUR ---
Patient continues to have bloody secretions. Patient had large bloody bowel movement this AM. Resting in bed. Report given to PAT Kohler
--- NOTE | 2020-10-07 09:51 | NUR ---
Patient transferred to ICU from IPR. Account change delayed. Please refer to [id number] for transition to ICU care.
== END 2020-10-07 11:26 | disposition short-term general hospital (02) | DRG 57 ==
LOC: ICU 10-07 04:25
PROVIDERS: Physician Assistant; ADMIT Internal Medicine
DX: I69.354 Hemiplegia and hemiparesis following cerebral infarction affecting left non-dominant side (principal); N39.0 Urinary tract infection, site not specified; I50.22 Chronic systolic (congestive) heart failure; I42.9 Cardiomyopathy, unspecified; I13.0 Hypertensive heart and chronic kidney disease with heart failure and stage 1 through stage 4 chronic kidney disease, or unspecified chronic kidney disease; Z68.41 Body mass index [BMI] 40.0-44.9, adult; N17.9 Acute kidney failure, unspecified; E87.1 Hypo-osmolality and hyponatremia; R04.2 Hemoptysis; N18.9 Chronic kidney disease, unspecified; I48.91 Unspecified atrial fibrillation; I69.322 Dysarthria following cerebral infarction; K86.9 Disease of pancreas, unspecified; I80.9 Phlebitis and thrombophlebitis of unspecified site; G47.33 Obstructive sleep apnea (adult) (pediatric); F32.9 Major depressive disorder, single episode, unspecified; I73.9 Peripheral vascular disease, unspecified; M17.0 Bilateral primary osteoarthritis of knee; J30.2 Other seasonal allergic rhinitis; E66.01 Morbid (severe) obesity due to excess calories; E78.5 Hyperlipidemia, unspecified; Z79.01 Long term (current) use of anticoagulants; Z79.891 Long term (current) use of opiate analgesic; Z90.5 Acquired absence of kidney; Z90.710 Acquired absence of both cervix and uterus; Z77.22 Contact with and (suspected) exposure to environmental tobacco smoke (acute) (chronic); Z88.8 Allergy status to other drugs, medicaments and biological substances; Z88.0 Allergy status to penicillin
CPT/HCPCS: 99223-AI; 99231-AI; 99232-AI; J7030; Q9967

== ENCOUNTER 2020-10-07 02:30 | Inpatient (IN) | payer MEDICARE, BC ==
[2020-10-07] VITALS (390 sets, daily range): BP systolic 109–125; BP diastolic 65–81; PULSE 129–150; TEMP 98.1; O2SAT 86–100
[~2020-10-07 02:30] MED LIST changes: +CARDIZEM 30MG T30 MG PO; +CEPHALEXIN500 M1 PO; +EFFEXOR XR75 MG/CAP PO; +ELIQUIS 5MG PO; +HYDROCORTISONE30 G3 TP; +LASIX 20MG TABL20 MG PO; +LIPITOR 80MG80 MG PO; +PROLIA60 MG/ML SQ; +PROTONIX20 MG PO; +SINGULAIR 110 MG/TAB PO; +TOPROL XL 50MG50 MG PO; +TYLENOL 500MG500 MG PO; +VITAMIN D31000 I1 PO; +ZYRTEC 10MG10 MG PO
--- NOTE | 2020-10-07 07:00 | NUR ---
Patient transferred from I[facility] to ICU. Change in account delayed. Refer to [id number] for initial ICU documentation to include FFP transfusion.
--- NOTE | 2020-10-07 09:37 | NUR ---
The patient transferred down to the ICU from [facility]. The patient was to tentatively d/c from [facility] next Saturday, 10/11, to SNF. Referrals were faxed to [facility], [facility], [facility], and [facility]. SW staffed with [facility] high school social science teacher, Denise, and was updated on the referrals. [facility]: They can likely take for LTC, but not SNF. [facility]: They can likely accept, but the patient would have to change her PCP to a local provider. [facility]: Is following, but they would need to know more about the patient's full body PET scan w/ biopsy & the outpatient workup for cancer. [facility]: Accepted the patient for SNF. AILYN met with the patient and her son, Ashwin, to review d/c plan and to update on the above. Ashwin reports that the doctors are talking to them about switching her to a new med that would help with her bleeding, but there are risks. He states that they have also talked to them about the possibility of being intubated. He states that he is keeping his siblings updated and they are discussing the above. The patient's Living Will and DPOA-HC is in EMR. It designates her late and the alternate is her oldest son, Obi. The patient and Ashwin report that Obi is in [place] now and not really wanting to be the DPOA-HC. The patient reports that she would like to update her DPOA-HC and would be interested in completing one while here. AILYN provided the form. The patient designated her son, Ashwin. She designated her daughter, Maxine Bang (ph#[phone]), as the alternate. AILYN and Environmental ServicesChelsea, witnessed the patient's signature. AILYN provided them with the original and some copies. AILYN placed a copy in the patient's chart. Ashwin reports that they are still interested and agreeable to SNF upon discharge. He states that he will update his siblings on the referrals. SW to fax updates to the above facilities and will continue to follow. *Discharge plan: SNF*
[2020-10-07 12:09] LABS: INR 1.5 (0.8-3.0); PROTHROMBIN TIME 17.2 SECONDS (9.7-12.8)
[2020-10-07 12:10] LABS: ALBUMIN 2.9 gm/dL (3.5-5.0); BILIRUBIN,TOTAL 3.9 mg/dL (0.0-1.0); CREATININE, serum 3.17 (0.52-1.25); POTASSIUM 5.1 mmol/L (3.4-5.0); TOTAL PROTEIN 6.3 gm/dL (6.4-8.2)
[2020-10-07 12:11] LABS: PARTIAL THROMBOPLASTIN TIME 41.5 SECONDS (26.0-37.0)
[2020-10-07 12:20] LABS: BASO # 0.1 (0.0-0.2); BASO % 0.3 % (0.0-2.0); EOS # 0.3 (0.0-0.7); EOS % 1.8 % (0-4.0); GRAN # 13.7 (1.4-6.5); LYMPH % 5.9 % (20.0-51.0); MEAN CELL VOLUME 91 fl (80.0-100.0); MEAN CORPUSCULAR HGB CONC 34 g/dl (33.0-37.0); MEAN PLATELET VOLUME 11.9 fl (7.4-10.4); MONO # 1.2 (0.1-0.6); MONO % 7.3 % (1.7-9.3); PLATELET COUNT 198 K/mm3 (130-400); RED BLOOD COUNT 2.93 M/mm3 (4.10-5.30); REDCELL DISTRIBUTION WIDTH-CV 15.7 % (11.5-14.5)
[2020-10-07 12:34] LABS: HEMATOCRIT 26.6 % (37.0-47.0); MEAN CORPUSCULAR HEMOGLOBIN 31 pg (27.0-31.0)
[2020-10-07 16:24] LABS: HEMATOCRIT 24.2 % (37.0-47.0)
--- NOTE | 2020-10-07 19:25 | NUR ---
Report given to PAT Miles.
--- NOTE | 2020-10-07 20:00 | NUR ---
VRY SOCIALABLE NO PRESENT COUGH/ TALKING WITH DAUGHTER, DENIES PAIN
[2020-10-07 22:23] LABS: HEMATOCRIT 23.8 % (37.0-47.0); HEMOGLOBIN 7.9 g/dl (12.5-16.0)
[2020-10-08] VITALS (549 sets, daily range): BP systolic 100–112; BP diastolic 43–79; PULSE 83–110; TEMP 97.4–98.4; O2SAT 77–100
--- NOTE | 2020-10-08 01:10 | NUR ---
PATIENT REQUEST TO BE ON BED DOW NEEDED TO URINATE AND BOWEL MOVEMENT, IN BED DOW WAS SMALL AMOUNT OF BLACK RED TARRY STOOLS FORMED, OUTSIDE BED DOW WAS YELLOW URINE STAINS IN PADDING FOR BED AT LEAST 500 CC OF URINE ON BEDDING VERY WET, PERWICK CAUGHT SMALL AMOUNT 15 CC. PATIENT STATES "I FEEL BETTER SINCE I HAD A GOOD BOWEL MOVEMENT"
[2020-10-08 05:26] LABS: BASO % 0.3 % (0.0-2.0); EOS # 0.1 (0.0-0.7); EOS % 0.5 % (0-4.0); GRAN # 11.1 (1.4-6.5); GRAN % 81.7 % (42.2-75.2); LYMPH # 1.2 (1.2-3.4); LYMPH % 9.1 % (20.0-51.0); MEAN CELL VOLUME 91 fl (80.0-100.0); MEAN CORPUSCULAR HGB CONC 33 g/dl (33.0-37.0); MEAN PLATELET VOLUME 11.5 fl (7.4-10.4); MONO % 7.4 % (1.7-9.3); PLATELET COUNT 182 K/mm3 (130-400); RED BLOOD COUNT 2.45 M/mm3 (4.10-5.30); REDCELL DISTRIBUTION WIDTH-CV 15.7 % (11.5-14.5)
[2020-10-08 05:27] LABS: HEMATOCRIT 22.3 % (37.0-47.0); HEMOGLOBIN 7.4 g/dl (12.5-16.0); MEAN CORPUSCULAR HEMOGLOBIN 30 pg (27.0-31.0)
[2020-10-08 05:39] LABS: ALBUMIN 2.7 gm/dL (3.5-5.0); BILIRUBIN,TOTAL 3.4 mg/dL (0.0-1.0); CALCIUM 7.3 mg/dL (8.4-10.2); CREATININE, serum 3.54 (0.52-1.25); TOTAL PROTEIN 5.9 gm/dL (6.4-8.2)
--- NOTE | 2020-10-08 08:10 | NUR ---
PT is awake sitting onside of bed this morning and requests to sit in recliner. PT SBA to chair without incident. PT has no complaints. Vitals WNL. PT eating breakfast and watching tv. Call light in reach.
--- NOTE | 2020-10-08 09:06 | NUR ---
PT is sleeping this morning but wakes easily. PT denies pain or shortness of breath. Vitals WNL. PT states she is very tired and falls asleep quickly one this RN completes the assessment. PT is currenlty laying in bed fast asleep with call light in reach.
[2020-10-08 10:34] LABS: HEMATOCRIT 21.7 % (37.0-47.0); HEMOGLOBIN 7.3 g/dl (12.5-16.0)
--- NOTE | 2020-10-08 12:02 | NUR ---
RAMÓN Quezada in to see patient. Order received to DC NS infusion as patient is fluid overloaded and takingin oral fluids.
--- NOTE | 2020-10-08 17:45 | NUR ---
1701- Report given to PAT Green. 1731- PT moved to new bed. PT had bm. PT cleaned up of incontinence. Pt then transported up stairs with assistance of two CNAs.
[2020-10-08 18:38] LABS: HEMOGLOBIN 7.4 g/dl (12.5-16.0)
--- NOTE | 2020-10-08 18:50 | NUR ---
Patient resting in bed, daughter at bedside. Patient is alert and oriented, answers questions appropriately. Patient continues to have a cough that produces some blood tinged speutum. Patient also continues to have loose stools. Denies pain or needs at this time, call light within reach.
--- NOTE | 2020-10-08 20:00 | NUR ---
PT RESTING IN BED. VISITING WITH DAUGHTER. NO DISTRESS AT THIS TIME. LT ARM FLACCID. LLE VERY WEAK. USING SIT TO STAND LIFT IF NEEDING TRANSFERRED. HR IRREG. LT ARM ELEVATED ON PILLOWS. CALL LIGHT IN REACH. BED ALARM SET.
[2020-10-09] VITALS (13 sets, daily range): BP systolic 11–130; BP diastolic 48–73; PULSE 69–138; TEMP 97.6–98.3
[2020-10-09 06:29] LABS: BASO % 0.2 % (0.0-2.0); EOS # 0.4 (0.0-0.7); EOS % 2.5 % (0-4.0); GRAN # 14.4 (1.4-6.5); GRAN % 81.8 % (42.2-75.2); LYMPH # 1.1 (1.2-3.4); LYMPH % 6.4 % (20.0-51.0); MEAN CELL VOLUME 89 fl (80.0-100.0); MEAN CORPUSCULAR HGB CONC 34 g/dl (33.0-37.0); MEAN PLATELET VOLUME 12.1 fl (7.4-10.4); MONO # 1.4 (0.1-0.6); MONO % 8.1 % (1.7-9.3); PLATELET COUNT 198 K/mm3 (130-400); RED BLOOD COUNT 2.28 M/mm3 (4.10-5.30); REDCELL DISTRIBUTION WIDTH-CV 15.4 % (11.5-14.5)
[2020-10-09 06:36] LABS: HEMATOCRIT 20.2 % (37.0-47.0); HEMOGLOBIN 6.9 g/dl (12.5-16.0); INR 1.4 (0.8-3.0); MEAN CORPUSCULAR HEMOGLOBIN 30 pg (27.0-31.0); PROTHROMBIN TIME 15.9 SECONDS (9.7-12.8)
[2020-10-09 06:39] LABS: ALBUMIN 2.7 gm/dL (3.5-5.0); BILIRUBIN,TOTAL 2.8 mg/dL (0.0-1.0); CALCIUM 7.3 mg/dL (8.4-10.2); CREATININE, serum 4.13 (0.52-1.25); POTASSIUM 4.4 mmol/L (3.4-5.0)
--- NOTE | 2020-10-09 18:17 | NUR ---
Patient resting in bed at this time. Patiet is sleeping, rouses easily, is alert and oriented while awake. Patient returned from EGD this morning and denied pain after procedure, post op checks initiated. Blood was picked up from blood bank for tansfusion per order. IV site infiltrated approximately 20 minutes into transfusion. Transfusion stopped and anesthesia came up to attempt to place a new peripherial site. Anesthesia gained peripherial IV access and transfusion was re-initiated as it was within the 30 minute window. New IV access site infiltrated nearly immediately. Blood stopped, advised hospitalist of loss of second IV site. Order entered for central line, surgeon informed. Blood returned to the blood bank per protocol. Patient returned to the floor with central line in place, central line placement confirmed by x ray. Patient denies pain or needs at this time, call light within reach.
--- NOTE | 2020-10-09 20:05 | NUR ---
LPRBC'S STARTED PER BLUE PORT LT SUBCLAVIAN. PT VERBALIZES UNDERSTANDING OF POSSIBLE REACTION AND TO REPORT TO NURSE IMMEDIATELY.
--- NOTE | 2020-10-09 20:20 | NUR ---
NO S/S OF BLOOD REACTION NOTED. CONTINUE INFUSION NOW AT 125CC/ HR.
--- NOTE | 2020-10-09 21:00 | NUR ---
PT RESTING. NO DISTRESS NOTED.
--- NOTE | 2020-10-09 21:36 | NUR ---
LPRBC'S STARTED TO LT SUBCLAVIAN BLUE PORT AT 60CC/HR. PT VERBALIZED UNDERSTANDING OF POSSIBLE REACTION TO REPORT TO NURSE.
--- NOTE | 2020-10-09 22:50 | NUR ---
BLOOD COMPLETED. NO REACTION NOTED.
[2020-10-09 23:20] LABS: HEMATOCRIT 23.2 % (37.0-47.0)
--- NOTE | 2020-10-09 23:45 | NUR ---
UA OBTAINED VIA STRAT CATH. EMPTIED BLADDER WITH HAZY DARK FLEX RETURN. 600CC TOTAL UO. UA SENT TO LAB. MOD AMT OF YELLOW VAGINAL DRAINAGE NOTED. HAD SMALL DARK RED BLOODY STOOL. CLEANED PT UP. INT TO LT F/A REMOVED- WAS INFILTRATED. LT ARM DEEP PURPLE AND EDEMA NOTED. RT F/A SWOLLEN ALSO AND RED. BILAT ARMS ELEVATED ON PILLOWS. NPO AT MN. CALL LIGHT IN REACH. BED ALARM SET.
[2020-10-10 00:52] LABS: COLLECTION METHOD CLEAN CATCH
[2020-10-10 01:01] LABS: MUCOUS Present /lpf; PH 6 (5-8); SQUAMOUS EPITHELIAL 0-2 /hpf; URINE APPEARANCE Cloudy; URINE BACTERIA None Seen /hpf; URINE BILIRUBIN Negative (NEGATIVE); URINE BLOOD 2+ (NEGATIVE); URINE COLOR Amber; URINE GLUCOSE Negative (NEGATIVE); URINE KETONE Negative (NEGATIVE); URINE LEUKOCYTE ESTERASE Trace (NEGATIVE); URINE NITRATE Negative (NEGATIVE); URINE PROTEIN(semi-quant) 2+ (NEGATIVE); URINE RBC 0-2 /hpf; URINE UROBILINOGEN Negative (NEGATIVE)
--- NOTE | 2020-10-10 02:29 | NUR ---
PT SLEEPING. NO DISTRESS AT THIS TIME.
[2020-10-10 03:11] VITALS: BP 114/65; PULSE 80; TEMP 98.2
[2020-10-10 06:30] LABS: MEAN CELL VOLUME 88 fl (80.0-100.0); MEAN CORPUSCULAR HGB CONC 35 g/dl (33.0-37.0); MEAN PLATELET VOLUME 12.1 fl (7.4-10.4); PLATELET COUNT 180 K/mm3 (130-400); REDCELL DISTRIBUTION WIDTH-CV 15.1 % (11.5-14.5)
--- NOTE | 2020-10-10 06:30 | NUR ---
Report received from PAT Leal. Pt in bed resting with no needs, NPO for procuedure today, will continue to monitor.
[2020-10-10 06:42] LABS: ALBUMIN 2.7 gm/dL (3.5-5.0); BILIRUBIN,TOTAL 2.3 mg/dL (0.0-1.0); CALCIUM 6.8 mg/dL (8.4-10.2); CREATININE, serum 3.94 (0.52-1.25)
[2020-10-10 06:52] LABS: HEMATOCRIT 22.9 % (37.0-47.0); HEMOGLOBIN 8.1 g/dl (12.5-16.0); MEAN CORPUSCULAR HEMOGLOBIN 31 pg (27.0-31.0)
[2020-10-10 08:15] VITALS: TEMP 98.3
[2020-10-10 09:36] VITALS: BP 119/57; PULSE 80
--- NOTE | 2020-10-10 09:42 | NUR ---
Assessment charted, pt was lethargic this am and hospitalist put in hypoglycemia protocol. Per protocol pt drank juice, 1/2 amp of D50 given, and started D5W at 50 ml/hr. Pt able to answer all orientation questions appropriately. Aware of surroundings. Arms and legs are edemetous +2, arms are severely bruised from recent IV attempts. LSC triple lumen catheter, flushes well and good blood return. Sacrem ahs small open abrasion that is healing and covered with cream. SUMEET skin tear, dressing hcanged with mepilex. RFA skin tear, dressing changed with mepilex. Heels floated, turning q2h to offset sacrem, arms elevated on pillows. Family at bedside. Pyle to see pt and discussed broncoscopy and plan to do this has been cnacelled. PT will have MRCP at 1430 today, per MRI nurse okay to eat until 1030, ordered food. PT blood sugars have normalized. Pt denies pain, call light in reach, will continue to monitor.
--- NOTE | 2020-10-10 12:13 | NUR ---
Met with patient and her son at bedside to discuss goals of care and also code status. Pt had been living independently at home prior to her stroke with some support from her family. She had been making slow progress at [facility] and then started coughing up blood. She spent some time in ICU and now is back on the surgical floor. She and Dr Pyle agreed that a bronchoscopy was not needed today. She is to do a MRCP today and then will follow up based on results. Son reports that after he stroke they were looking at care home placement. Reviewed with them what aggressive, vs supportive, vs comfort care choices might look like. Pt reports that she is aware of her situation and has been giving it a lot of thought. She is sure that she would not want to be coded and this was relayed to Dr Tan by pt and myself. Family will talk more between themselves and with patient and try to clearly define what goals of care are. Will follow up as needed.
[2020-10-10 12:50] VITALS: BP 100/60; PULSE 75; TEMP 98.4
[2020-10-10 15:33] VITALS: BP 118/70; PULSE 84; TEMP 97.5
[2020-10-10 16:01] LABS: HEMATOCRIT 23.5 % (37.0-47.0); HEMOGLOBIN 8.1 g/dl (12.5-16.0)
--- NOTE | 2020-10-10 17:22 | NUR ---
Pt transferred over to cot for MRCP but not able to tolerate laying on hard flat surface for any period of time, decided to cancel the MRCP and return to bed. Pt aware of consequences and would like to respectfully make her own decisions at this time and have a family meeting tomorrow. AMAN Cardona with hospitalist would like all 4 children and pt to be able to have this conversation with the team tomorrow, will pass along to nightshift staff so they can help get this organized. Pt resting between disturbances, will give bedside shift report to nightshift nurse who will resume care.
[2020-10-10 19:53] VITALS: BP 112/48; PULSE 89; TEMP 98.4
[2020-10-11] VITALS (7 sets, daily range): BP systolic 100–138; BP diastolic 50–70; PULSE 58–89; TEMP 97–98.4
--- NOTE | 2020-10-11 04:53 | NUR ---
Patient did well during the night. We repositioned her a few times during the night. Attempted to keep her arms and feet elevated to help with the edema. No complaints of nausea. Stated feeling achy a few times but did not want pain medications. She has several areas of bruising, bilateral arms, toes, tops of feet. Purewick in place. No other changes at this time. Call light within reach. Bed alarm on.
[2020-10-11 06:44] LABS: BASO % 0.2 % (0.0-2.0); EOS # 1.4 (0.0-0.7); EOS % 9.8 % (0-4.0); GRAN # 10.3 (1.4-6.5); GRAN % 72.6 % (42.2-75.2); MEAN CELL VOLUME 88 fl (80.0-100.0); MEAN CORPUSCULAR HGB CONC 34 g/dl (33.0-37.0); MONO # 1.4 (0.1-0.6); MONO % 9.5 % (1.7-9.3); PLATELET COUNT 186 K/mm3 (130-400); RED BLOOD COUNT 2.77 M/mm3 (4.10-5.30); REDCELL DISTRIBUTION WIDTH-CV 15.1 % (11.5-14.5)
[2020-10-11 06:47] LABS: HEMATOCRIT 24.5 % (37.0-47.0); HEMOGLOBIN 8.4 g/dl (12.5-16.0); MEAN CORPUSCULAR HEMOGLOBIN 30 pg (27.0-31.0)
[2020-10-11 06:53] LABS: ALBUMIN 2.8 gm/dL (3.5-5.0); BILIRUBIN,TOTAL 1.9 mg/dL (0.0-1.0); CALCIUM 6.8 mg/dL (8.4-10.2); CREATININE, serum 3.6 (0.52-1.25); POTASSIUM 3.6 mmol/L (3.4-5.0); TOTAL PROTEIN 6.4 gm/dL (6.4-8.2)
--- NOTE | 2020-10-11 10:22 | NUR ---
I spoke with Ashwin,son/DPOA-HC, and daughter Malathi at bedside. They are requesting a family meeting with their sister Maxine Bang in person and their other brother by phone. We have set this meeting up for 1pm today and I have notified manager social, Kayla and Krystle NEWTON. The family has requested meet in the family room first and then to talk with their mother, Pilar, after they have had a chance to ask their questions.
--- NOTE | 2020-10-11 10:42 | NUR ---
First visit from the acetylene torch operator. prayed with patient. No other needs right now.
--- NOTE | 2020-10-11 13:45 | NUR ---
Family meeting held with Maxine Christopher, and Malathi here and older brother Obi on the phone. Dr Temple and Krystle joined Kayla, social work, and Arleen Herrera wild animal caretaker in meeting. Family asked for a description of Pilar's situation, options of care available, and probability of recovery. The four children are very seriously looking at hospice with focus on comfort but wanted to talk between themselves and then with their mother. They will let us know what their decision is and we will proceed from there.
--- NOTE | 2020-10-11 14:44 | NUR ---
Family is a bedside but really has not been able to talk with Pilar yet about what her goals of care would be. When a decision is made, they will let us know.
--- NOTE | 2020-10-11 15:06 | NUR ---
Due to the patient's declining condition and the patient's refusal of procedures on 10/10 a family meeting to discuss goals of care was held this day at 1300. Those present were Arleen Herrera, Palliative Care nurse, Nell STEWART, Hospitalist, AMAN and the patient's adult children Malathi, Ashwin, Agustina, and Obi was on speaker phone. Hospitalist discussed the patient's condition and pursing aggressive care vs hospice and what that entailed. Arleen and this SW discussed the hospice options of home with hospice, a custodial with hospice, or the [facility]. It was discussed that the room and board would be the responsibility of the patient and family. They understood. The patient's children stated that the patient does not want home with hospice. All questions were answered. The patient's adult children need time to make official decision but were interested in either the [facility] or [facility] with hospice. The patient's children to discuss options with the patient. Malathi to visit the [facility]. AILYN contacted Martine Russell with the [facility] and she will contact Malathi to set up a visit. Martine reports they do have beds available at this time. AILYN contacted Ayanna at [facility]. They do have availablity at this time but have not given offical acceptance for hospice. [facility] uses [facility] as their hospice agency. The room and board at [facility] is $205 for a private room and $185 for a semi-private room. AILYN attempted to contact the patient's son Ashwin to provide the above update, left message. *Discharge disposition: Awaiting family decision on hospice choices *
--- NOTE | 2020-10-11 18:14 | NUR ---
Patient resting in bed with daughter by her side, alarm on bed. Will continue to monitor.
--- NOTE | 2020-10-11 19:42 | NUR ---
Patient had one incontinent episode of urine this afternoon and she was a 3 person assist with changing clothing and bedding. Patient had a family meeting today and she and family were discussing comfort care. Patient currently on a regular diet and has not been reporting any pain at this time. Will continue to monitor.
[2020-10-12 05:31] LABS: BASO # 0.1 (0.0-0.2); BASO % 0.3 % (0.0-2.0); EOS # 1.4 (0.0-0.7); GRAN # 11.6 (1.4-6.5); LYMPH % 6.5 % (20.0-51.0); MEAN CELL VOLUME 88 fl (80.0-100.0); MEAN CORPUSCULAR HGB CONC 34 g/dl (33.0-37.0); MEAN PLATELET VOLUME 11.9 fl (7.4-10.4); MONO # 1.3 (0.1-0.6); MONO % 8.2 % (1.7-9.3); PLATELET COUNT 188 K/mm3 (130-400); RED BLOOD COUNT 2.82 M/mm3 (4.10-5.30); REDCELL DISTRIBUTION WIDTH-CV 15.3 % (11.5-14.5)
[2020-10-12 05:35] LABS: HEMATOCRIT 24.9 % (37.0-47.0); HEMOGLOBIN 8.5 g/dl (12.5-16.0); MEAN CORPUSCULAR HEMOGLOBIN 30 pg (27.0-31.0)
[2020-10-12 05:44] LABS: ALBUMIN 2.9 gm/dL (3.5-5.0); BILIRUBIN,TOTAL 1.8 mg/dL (0.0-1.0); CALCIUM 7.1 mg/dL (8.4-10.2); CREATININE, serum 3.42 (0.52-1.25); POTASSIUM 3.3 mmol/L (3.4-5.0); TOTAL PROTEIN 6.6 gm/dL (6.4-8.2)
[2020-10-12 07:12] VITALS: BP 124/70; PULSE 73; TEMP 98.4
--- NOTE | 2020-10-12 11:59 | NUR ---
First visit from the visual and stock associate. prayed with patient. No other needs right now.
[2020-10-12 12:04] VITALS: BP 105/71; PULSE 87; TEMP 97.8
--- NOTE | 2020-10-12 12:15 | NUR ---
Family reports that they have decided to go to [facility] after touring there. I notified Kayla social work, and I faxed over referral to [facility] after speaking to Martine, their community outreach coordinator. Waiting to hear final decision from [facility]. Family did tour there yesterday.
--- NOTE | 2020-10-12 14:08 | NUR ---
Martine at [facility] advises that they can admit there tomorrow morning. Patient and Ashwin advised of this plan and are agreeable. I did encourage Ashwin to call hospice house later today to see if he could sign paperwork today rather than returning tomorrow for his convenience. Pt was given a comfort quilt with explanation and seemed very pleased with this gift. Support provided.
--- NOTE | 2020-10-12 14:46 | NUR ---
Arleen Herrera, Palliative Care Nurse staffed with this Materials Planner regarding the patient and family decision regarding hospice. Family and patient decided to go to the [facility]. Arleen faxed referral. AILYN contacted Martine Russell with the [facility] and she states an admission on 10/13 in the morning will be likely. She will contact this SW when she has a for sure answer and time. AILYN collaborated the above information with the team.
[2020-10-12 16:03] VITALS: BP 105/49; PULSE 78; TEMP 98.1
[2020-10-12 19:59] VITALS: BP 108/57; PULSE 84; TEMP 98
[2020-10-12 23:10] VITALS: BP 104/67; PULSE 74; TEMP 97.8
--- NOTE | 2020-10-13 00:51 | NUR ---
pt seems in good spirit and rated her pain 0/10. VSS. Will continue to monitor.
[2020-10-13 03:11] VITALS: BP 84/65; PULSE 91; TEMP 97.8
[2020-10-13 07:07] VITALS: BP 123/72; PULSE 90; TEMP 97.6
[2020-10-13] MEDS ORDERED: VOLTAREN GEL 1%1 TU TP (08:41)
[2020-10-13] MEDS ORDERED: RT ALBUTER2.5 MG/0.5 IH (08:41)
[2020-10-13] MEDS ORDERED: ROXANOL 20MG20 MG/ML SL (08:42)
[2020-10-13] MEDS ORDERED: TESSALON P100 MG/CAP PO (08:43)
[2020-10-13] MEDS ORDERED: ATIVAN 1MG T1 MG/TAB PO (08:43)
[2020-10-13] MEDS ORDERED: ATROPINE 2 ML2 ML SL (08:44)
[2020-10-13] MEDS ORDERED: SYSTANE 0.3-0.1 EACH OP (08:44)
[2020-10-13] MEDS ORDERED: DULCOLAX S10 MG/SUPP RC (08:45)
[2020-10-13] MEDS ORDERED: BIOTENE MOIST44.3 ML PO (08:46)
[2020-10-13] MEDS ORDERED: ZOFRAN ODT4 MG PO (08:46)
--- NOTE | 2020-10-13 09:38 | NUR ---
The patient to tentatively discharge today, 10/13 to the [facility]. [facility] will be transported at 1000. The team and family were in agreeance. Food Production Manager faxed scripts to [facility]. AILYN faxed discharge order and negative Covid-19 results to Bryon at the [facility]. AILYN presented the IM form to the patient and her daughter, Malathi. They understood and Malathi signed the form. A copy provided to the patient and original placed in the chart. There are no additional needs.
--- NOTE | 2020-10-13 10:00 | NUR ---
Patient is in good spirits today, daughter is at bedside. COVID test obtained, patient tolerated well. Assisted patient/family in gatering belongings prior to transfer. EMS arrived to transport patient, patient moved to cart and secured for transport. Patient and daughter confirm that all personal belongings had been gathered.
--- NOTE | 2020-10-13 10:28 | NUR ---
Met with daughter Malathi and patient this morning. Pt does report that she is feeling nervous about this move but that she believes it is the best move for her. Support provided to both patient and her daughter. Transfer is scheduled for 1000 by EMS. Staff is asisting in getting her ready to go. Staff nurse will review with her daughter medications that she will be sent on.
== END 2020-10-13 10:00 | disposition hospice, inpatient (51) | DRG 377 ==
LOC: SURG 02:30 → ICU 02:30 → SURG 10-08 17:38
PROVIDERS: Internal Medicine Gastroenterology; Internal Medicine Nephrology; Internal Medicine Pulmonary Disease; Physician Assistant; Surgery; ADMIT Hospitalist
PROC: 0DJ08ZZ Inspection of Upper Intestinal Tract, Via Natural or Artificial Opening Endoscopic (ICD-10-PCS; 2020-10-07)
PROC: 02HV33Z Insertion of Infusion Device into Superior Vena Cava, Percutaneous Approach (ICD-10-PCS; principal; 2020-10-09 09:30)
DX: K92.0 Hematemesis (principal); I50.23 Acute on chronic systolic (congestive) heart failure; I48.11 Longstanding persistent atrial fibrillation; C25.8 Malignant neoplasm of overlapping sites of pancreas; I69.354 Hemiplegia and hemiparesis following cerebral infarction affecting left non-dominant side; D62 Acute posthemorrhagic anemia; N17.9 Acute kidney failure, unspecified; Z68.41 Body mass index [BMI] 40.0-44.9, adult; I13.0 Hypertensive heart and chronic kidney disease with heart failure and stage 1 through stage 4 chronic kidney disease, or unspecified chronic kidney disease; E87.1 Hypo-osmolality and hyponatremia; I42.9 Cardiomyopathy, unspecified; R17 Unspecified jaundice; Z66 Do not resuscitate; Z51.5 Encounter for palliative care; Z20.822 Contact with and (suspected) exposure to COVID-19; Z79.01 Long term (current) use of anticoagulants; K92.1 Melena; I69.322 Dysarthria following cerebral infarction; I69.392 Facial weakness following cerebral infarction; I69.391 Dysphagia following cerebral infarction; R13.10 Dysphagia, unspecified; E16.2 Hypoglycemia, unspecified; N18.30 Chronic kidney disease, stage 3 unspecified; E66.01 Morbid (severe) obesity due to excess calories; F32.9 Major depressive disorder, single episode, unspecified; I73.9 Peripheral vascular disease, unspecified; R22.42 Localized swelling, mass and lump, left lower limb; Z85.528 Personal history of other malignant neoplasm of kidney; Z90.5 Acquired absence of kidney; G47.33 Obstructive sleep apnea (adult) (pediatric); J30.2 Other seasonal allergic rhinitis; D72.829 Elevated white blood cell count, unspecified; E78.5 Hyperlipidemia, unspecified; Z88.1 Allergy status to other antibiotic agents; Z88.0 Allergy status to penicillin; Z88.8 Allergy status to other drugs, medicaments and biological substances; Z77.22 Contact with and (suspected) exposure to environmental tobacco smoke (acute) (chronic); M17.0 Bilateral primary osteoarthritis of knee
CPT/HCPCS: 99223-AI; 99232-AI; 99233-AI; 99239; C1751; C9113; J1940; J2405; J2704; J7030; P9016